=== PATIENT | female | born 1955 | race Caucasian/White ===

== ENCOUNTER → 2016-09-14 | Outpatient (CLI) | payer OTHER ==
--- NOTE | 2016-09-14 15:37 | DI ---
MRI CERVICAL SPINE W/O CN,09/14/2016 2:16 PM: Clinical History: Cervical neck pain with disc disease. Previous Exam: 01/18/16 Findings: Multiplanar MR images are obtained through the cervical spine without contrast, and demonstrate stabl e postsurgical changes consistent with anterior screw and plate fixation as well as interbody fixatio n of C4-C6. The spinal cord descends normally with normal course, caliber and signal characteristics. 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 This is unchanged from prior. The posterior fossa is unremarkable. The prevertebral soft tissues are unremarkable. Individual intervertebral disc spaces: C2/3.: No significant stenosis. C3/4: There is disc desiccation and a broad-based disc bulge contributing to severe central canal nimisha nosis unchanged from prior exam. C4/5: There is interbody fusion at this level without significant stenosis. C5/6: There is interbody fusion at this level also without significant stenosis. C6/7: Postsurgical changes are noted at this level however, there is significant facet hypertrophy co ntributing to mild to moderate right neuroforaminal narrowing C7/T1: No significant stenosis. And mild to moderate central canal stenosis. Impression: C3/4: There is disc desiccation and a broad-based disc bulge contributing to severe central canal nimisha nosis unchanged from prior exam. C4/5: There is interbody fusion at this level without significant stenosis. C5/6: There is interbody fusion at this level also without significant stenosis. C6/7: Postsurgical changes are noted at this level however, there is significant facet hypertrophy co ntributing to mild to moderate right neuroforaminal narrowing C7/T1: No significant stenosis. And mild to moderate central canal stenosis.
== END ==
LOC: MRI 13:49
PROVIDERS: ATTEND Physician Assistant
DX: M54.2 Cervicalgia (principal); M47.22 Other spondylosis with radiculopathy, cervical region
CPT/HCPCS: 72141